=== PATIENT | female | born 1955 | race Caucasian/White ===

== ENCOUNTER → 2018-06-01 11:21 | Outpatient (CLI) | payer OTHER, SELFPAY ==
[2018-06-01 11:49] LABS: Bacteria Urine None Seen; RBC Urine None Seen (0-5/HPF)
[2018-06-01 12:14] LABS: Add Manual Diff / Slide Review NO; Basophils Percent Auto 1.3 % (0-2); Eosinophils Percent Auto 4.7 % (2-4); Hematocrit 42.4 % (36-46); Hemoglobin 14.2 g/dL (12.0-16.0); Lymphocytes Percent Auto 19.9 % (25-40); Mean Corpuscular HGB Conc 33.6 % (30-36); Mean Corpuscular Hemoglobin 30.2 PG (26-34); Mean Corpuscular Volume 89.8 fL (80-100); Monocytes Percent Auto 10.2 % (3-14); Neutrophils Absolute Auto 4300 /uL (1500-7000); Neutrophils Percent Auto 63.9 % (50-75); Platelet Count 205 X10^3/uL (150-400); Red Blood Cell Count 4.72 X10^6/uL (4.0-5.2); White Blood Cell Count 6.8 X10^3/uL (4.5-11.0)
[2018-06-01 12:43] LABS: Appearance Urine UA CLEAR; Bilirubin Urine UA NEGATIVE (NEGATIVE); Color Urine UA YELLOW; Glucose Urine UA NEGATIVE (Normal); Ketones Urine UA NEGATIVE (NEGATIVE); Leukocyte Esterase Urine UA NEGATIVE (NEGATIVE); Nitrite Urine UA NEGATIVE (Negative); Occult Blood Urine UA NEGATIVE (Negative); Protein Urine UA NEGATIVE (Negative); Specific Gravity Urine UA <=1.005 (1.000-1.035); Urobilinogen Urine UA 0.2 E.U./dL (0.2); pH Urine UA 5.5 (4.5-8.0)
[2018-06-01 13:09] LABS: Culture Indicated Urine Cult Not Indicated; Squamous Epithelial Cell Urine 0-1 /HPF; WBC Urine 0-1/HPF (0-5/HPF)
[2018-06-01 13:12] LABS: BUN Creatinine Ratio 18.6 (6-22); Blood Urea Nitrogen 13 mg/dL (7-17); Calcium 9.5 mg/dL (8.4-10.2); Carbon Dioxide 26 mmol/L (22-32); Chloride 105 mmol/L (98-107); Estimated Glomerular Filt Rate > 60.0 mL/min (>60); Glucose 111 mg/dL (80-110); HEMOLYSIS < 15 (0-50); Potassium 4.9 mmol/L (3.4-5.1); Sodium 144 mmol/L (137-145)
== END ==
PROVIDERS: PCP Family Medicine; Visit Provider Orthopaedic Surgery
DX: Z01.818 Encounter for other preprocedural examination (principal); Z01.812 Encounter for preprocedural laboratory examination; N39.9 Disorder of urinary system, unspecified; Z13.1 Encounter for screening for diabetes mellitus
CPT/HCPCS: 36415; 80048; 81001; 83036; 85025; 93005

== ENCOUNTER 2018-08-08 08:45 | Day surgery (SDC) | payer OTHER, SELFPAY ==
[2018-07-20 10:28] VITALS: BMI 37.8
[2018-08-08] VITALS (9 sets, daily range): BP systolic 111–174; BP diastolic 72–90; PULSE 58–80; RESP 9–17; TEMP 36.1–36.6; O2SAT 92–97; BMI 38.2
--- NOTE | 2018-08-08 06:00 | DI.RAD.S_ITS ---
PROCEDURE: XR KNEE LT 1TO2V INDICATIONS: POST OPERATIVE LEFT KNEE TECHNIQUE: 2 view(s) of the knee acquired. COMPARISON: [facility], , KNEE 1-2 VIEWS RIGHT, 11/06/2015, 13:45. FINDINGS: Bones: Patient is status post knee joint arthroplasty. Hardware components are in expected positions. Visualized bony structures are intact. Soft tissues: Overlying postoperative changes are noted. IMPRESSION: Expected postoperative appearance Dictated by: Guillaume Chao M.D. on 08/08/2018 at 15:12 Approved by: Guillaume Chao M.D. on 08/08/2018 at 15:12
[2018-08-08] MEDS: CELECOXIB 200 MG CAPSULE PO (09:35)
[2018-08-08] MEDS: ACETAMINOPHEN 325 MG TABLET 975 MG PO (09:35)
[2018-08-08] MEDS: LACTATED RINGERS 1,000 ML 42 ML IV ×2 (10:03→12:15)
[2018-08-08] MEDS: VANCOMYCIN 1,000 MG/200 ML FROZ.PIGGY 200 MG IV (10:03)
--- NOTE | 2018-08-08 10:21 | PM.PREOP ---
Pre-operative Note Interval Note History & Physical reviewed/Exam performed by Physician: Yes Changes to H&P: No
--- NOTE | 2018-08-08 10:22 | PM.OP.1 ---
Operative Date/Time/Diagnoses Date of procedure: 08/08/18 Time of procedure: 10:29 Pre-op diagnosis: left knee oa Post-op diagnosis: same Procedure & Clinicians Procedure: Left knee medial compartment arthroplasty Same procedure as scheduled: Yes Indications: The patient has had progressively worsening left knee pain with radiographic changes consistent with arthritis. Non-operative management has failed and the patient has requested unicompartment versus total knee replacement. The risks, benefits and alternatives to surgery were discussed with the patient prior to proceeding. Risks discussed included, but were not limited to, failure to relieve pain, stiffness, infection, nerve damage, deep venous thrombosis, pulmonary embolism, stroke, coma, heart attack, permanent paralysis and , as well as the potential need for eventual revision of the prosthetic. Surgeon: Tracee Harkins Proof Load Mechanic: Radha Valenzuela Anesthesia Type: General and Spinal Operative Notes Findings: Severe medial compartment arthritis, no significant trochlear arthritis, grade 2 chondromalacia patella, normal lateral compartment Closure Type: primary Prosthetic devices, grafts, tissues, transplants, or devices: Size D femoral component, size 2 tibial component, +8 poly Estimated Blood Loss (mL): 250 Tourniquet time (min): 70 Procedure in detail: The patient was seen in the pre-operative area, where the left knee was identified as the operative site and this was marked with my initials. The patient received pre-operative antibiotics, and was taken to the operating room and placed on the operative table in the supine position. After satisfactory anesthesia, a time study analyst out was performed. The left leg was encircled with a tourniquet about the proximal thigh, and the leg was prepared from the toes to the tourniquet with ChloroPrep in the usual fashion and draped through sterile drapes. The leg was elevated and exsanguinated with Eschmark bandage and the tourniquet inflated to [250] mmHg pressure. The knee was approached through an approximately 10 cm incision medial parapatella incision and carried into the knee through a medial parapatellar arthrotomy. The osteophytes and medial meniscus were removed. Next, a small amount of the anterior tibial boss was carefully resected with a saw. The guide was placed along the medial joint line. It was meticulously adjusted to make sure there was appropriate slope that it was at the joint line and then was pinned to the tibia and the femur. The medial femoral condylar cut was made in extension. The tibial cut was made in flexion. The bone was meticulously irrigated with normal saline. Small amount of additional meniscus was resected posterior capsule was checked and injected with Marcaine. The extension gap was carefully checked with an 8 mm gap asbestos worker was noted that it fit well. A small number of additional osteophytes were resected. The tibia was a size [2]. It was noted that it fit without overhang. The femur was sized and it was noted to be a [D]. The appropriate cutting guide was pinned into place and carefully positioned on the femoral condyle. Drill holes were placed. The tibia was pinned into place and drill holes were made. Trial reduction with the appropriate poly showed full range of motion and good stability at 0, 45. and 90? with normal tracking of the components without edge loading. The bone was meticulously irrigated and dried. Additional Marcaine was injected. The posterior capsule was injected with 0.25% Marcaine mixed with 20 ml Exparel for post-operative pain control. The remainder of this mixture was injected into the capsule and subcutaneous tissues during cement curing. Range of motion was [0-130], with good stability throughout the range. The trials were then remove. The cement was as applied and the final prosthetics placed. Excess cement was removed during and after cement curing. A brief medial compartment Betadine soak was performed. After confirming there was no extruded cement posteriorly, the final tibial insert was placed. The knee was copiously irrigated and the tourniquet deflated. Hemostasis was obtained. The capsule was closed with interrupted Vicryl. The subcutaneous tissue was closed with barbed sutures. The skin with a running 3-0 V-Lock suture and surgical glue. An Aquacel Ag dressing was applied and the patient was taken to recovery having tolerated the procedure well. Complications: none Condition: stable Disposition: same day surgery Plan for aftercare: The patient will be maintained on a standard unicompartment knee replacement protocol with weight bearing as tolerated. The patient will receive aspirin and sequential compression devices for DVT prophylaxis. The patient will be discharged home when safe for the home environment.
[2018-08-08] MEDS: CEFAZOLIN 2 GM/100 ML FROZ.PIGGY IV (11:20)
--- NOTE | 2018-08-08 11:54 | SUR.OPER ---
Supine on padded OR bed. Pillow under head, arms secured on padded armboards <90 degree abduction. Safety belt across torso. Non-operative leg secured with tape over blanket over lower leg. Operative leg secured in [place]. Foam padded brace at thigh of operative leg.
[2018-08-08] MEDS: BUPIVACAINE 0.25% W/ EPI VIAL 50 ML INJ (12:09)
[2018-08-08] MEDS: BUPIVACAINE LIPOSOME 266 MG/20 ML VIAL INJ (12:10)
[2018-08-08] MEDS: TRANEXAMIC ACID 1,000 MG VIAL 1000 MG INJ ×2 (12:11→12:59)
[2018-08-08] MEDS: POVIDONE-IODINE 15 ML, SODIUM CHLORIDE 0.9% 250 ML TOP (12:11)
--- NOTE | 2018-08-08 13:54 | SUR.PHASEI ---
Dr Faust speaking with patient, told her that he was unable to do a spinal.
[2018-08-08] MEDS: HYDROMORPHONE 2 MG INJ 0.25 MG IV (14:00)
--- NOTE | 2018-08-08 14:03 | SUR.PHASEI ---
rx given for left knee pain 08/20. tolerating ice chips well. VSS. Skin warm and dry, resp even and regular. calm and appropriate. oriented.
[2018-08-08] MEDS: fentaNYL 100 MCG/2 ML INJ 50 MCG IV (14:10)
[2018-08-08] MEDS: OXYCODONE/ACETAMINOPHEN 5/325 TABLET 1 TAB PO (14:35)
--- NOTE | 2018-08-08 14:37 | SUR.PHASEI ---
1431 patient awake, stable, transferred to [facility]. Report to RN. Up to commode w/assist of [employer] RN and SEALING MACHINE OPERATOR. Applesauce given upon return to bed. PO rx checked out and given to [employer] RN.
--- NOTE | 2018-08-08 15:10 | SUR.PHASEII ---
1505 - verbally went thru d/c instructions with pt. and spouse; (pt. had right knee done, so familiar with at home instructions). Told pt to ice, elevate, medicate, rest for a few days, diet as tolerated and if any questions/concerns to please call surgeons office. Both pt and spouse verbally acknowledged understanding of instructions, pt/spouse comfortable with d/c home.
--- NOTE | 2018-08-08 15:22 | SUR.PHASEII ---
D/C instructions mailed to patient
== END 2018-08-08 15:12 | disposition home or self-care (01) ==
LOC: AC 13:32 → OR 08-09 14:52
PROVIDERS: PCP Family Medicine; Visit Provider Orthopaedic Surgery
PROC: 0SRD0JZ Replacement of Left Knee Joint with Synthetic Substitute, Open Approach (ICD-10-PCS; CPT 27447; principal; 2018-08-08 11:00)
DX: M17.12 Unilateral primary osteoarthritis, left knee (principal); E03.9 Hypothyroidism, unspecified; E78.00 Pure hypercholesterolemia, unspecified; I10 Essential (primary) hypertension; I25.10 Atherosclerotic heart disease of native coronary artery without angina pectoris; M22.42 Chondromalacia patellae, left knee; Z95.1 Presence of aortocoronary bypass graft
CPT/HCPCS: 27446; 73560; C1776; C9290; J0360; J0690; J1100; J1170; J2250; J2405; J2704; J3010; J3370